=== PATIENT | female | born 1945 | race Caucasian/White ===

== ENCOUNTER 2021-12-24 07:43 | Day surgery (SDC) | payer MEDICARE, OTHER ==
[2021-12-17 11:45] LABS: BASOPHILS % (AUTO) 0.5 % (0-1); EOSINOPHILS # (AUTO) 0.1 X10'3 (0-0.9); EOSINOPHILS % (AUTO) 2.4 % (0-6); LYMPHOCYTES # (AUTO) 1.2 X10'3 (1.1-4.8); LYMPHOCYTES % (AUTO) 21.3 % (21-51); MEAN CORPUSCULAR HEMOGLOBIN 29.1 PG (27.0-31.0); MEAN CORPUSCULAR HGB CONC 33.1 g/dL (33.0-36.5); MEAN CORPUSCULAR VOLUME 87.9 FL (78-98); MEAN PLATELET VOLUME 7.5 FL (7.4-10.4); MONOCYTES # (AUTO) 0.6 X10'3 (0-0.9); MONOCYTES % (AUTO) 11.7 % (2-12); NEUTROPHILS # (AUTO) 3.5 X10'3 (1.8-7.7); NEUTROPHILS % (AUTO) 64.1 % (42-75); PRE OP HEMATOCRIT 40.8 % (35.0-45.0); PRE OP HEMOGLOBIN 13.5 g/dL (12.0-16.0); PRE OP PLATELET COUNT 287 X10'3 (140-440); RED BLOOD COUNT 4.63 X10'6 (4.20-5.60); RED CELL DISTRIBUTION WIDTH 13.5 % (11.5-14.5)
[2021-12-17 11:51] LABS: ALBUMIN 3.6 G/DL (3.4-5.0); ALBUMIN/GLOBULIN RATIO 1.1 (1.1-1.5); ALKALINE PHOSPHATASE 84 IU/L (46-116); BLOOD UREA NITROGEN 17 MG/DL (7-18); BUN/CREATININE RATIO 19.3 (6.6-38.0); CALCIUM 8.9 MG/DL (8.5-10.1); CHLORIDE 105 MMOL/L (99-107); CREATININE 0.88 MG/DL (0.40-0.90); PRE OP ALT 18 U/L (30-65); PRE OP ANION GAP 9 (8-16); PRE OP AST 14 U/L (10-37); PRE OP BILIRUB, TOTAL 0.3 MG/DL (0.0-1.0); PRE OP GLUCOSE 101 MG/DL (70-104); PRE OP SODIUM 143 MMOL/L (135-145); TOTAL CARBON DIOXIDE 28.7 MMOL/L (24-32); TOTAL PROTEIN 6.9 G/DL (6.4-8.2); eGFR 63 ML/MIN
[~2021-12-24] VITALS: Ht 167.6 cm; Wt 87.3 kg
[~2021-12-24 07:43] MED LIST: AMIT75TA7 PO; DOCUMENT DATE & TIME OF BETA-BLOCKER PO ONE; FAMO40TA58 PO; HYDR12.55 PO; LEVO112T5 PO; LOVA40TA2 PO; MECL-231 PO; METO50TA16 PO; OMEP20CA16 PO; SUMA25TA35 PO; ceFAZolin inj. 2,000 MG in dextrose 5%-water 100 ML IV ONE; famotidine 20mg tablet PO ONE; ringers solution, lacted 1,000 ML IV SCH
[2021-12-24 08:10] VITALS: BP 125/70
[2021-12-24] MEDS ORDERED: LIDOcaine 1% (10mg/ml) 2ml vial ONE (09:25)
[2021-12-24] MEDS ORDERED: LIDOcaine 0.5% (5mg/ml) 50ml vial ONE (10:10)
[2021-12-24] MEDS ORDERED: fentaNYL/PF 50MCG/1 ML 2ML syringe ONE (10:37)
[2021-12-24] MEDS ORDERED: midazolam 1 mg/ML 2ml injection ONE (10:38)
[2021-12-24] MEDS ORDERED: BUPIVAcaine/PF 2.5 mg/ml (0.25%) 30ml vial ONE (11:05)
[2021-12-24 11:22] VITALS: BP 121/66
--- NOTE | 2021-12-24 11:22 | NUR ---
Received from OR via [facility] , accompanied by Anesthesiologist DORIE and report given by Anesthesiolgist. PATIENT WITH SPLINT TO 5TH FINGER ON LEFT HAND THAT IS CDI. + CAP REFILL. NO DRAINAGE TO WOUND AT THIS TIME AND NO PAIN . WILL CONTINUE TO ASSESS. Addendum: 12/24/21 at 1130 by Shekhar Valdivia RN, RN Amended: Links added.
[2021-12-24 11:30] VITALS: BP 122/70
[2021-12-24 11:40] VITALS: BP 120/67
[2021-12-24 11:50] VITALS: BP 130/64
[2021-12-24 12:00] VITALS: BP 127/67
--- NOTE | 2021-12-24 12:02 | NUR ---
ALL DISCHARGE CRITERIA HAS BEEN MET. VSS. DENIES PAIN. DRESSED AND PATIENT WITHOUT ANY COMPLAINTS AT THIS TIME. PATIENT UNDERSTOOD ALL DC QUESTIONS AND ALL BELONGINGS SENT WITH PATIENT TO HOME. FRIEND DROVE PATIENT HOME. Addendum: 12/24/21 at 1230 by Shekhar Valdivia RN, RN Amended: Links added.
== END 2021-12-24 12:02 | disposition home or self-care (01) ==
LOC: PAS 07:43
PROVIDERS: ATTEND Orthopaedic Surgery Hand Surgery
DX: S62.637A Displaced fracture of distal phalanx of left little finger, initial encounter for closed fracture (principal); K21.9 Gastro-esophageal reflux disease without esophagitis; G43.909 Migraine, unspecified, not intractable, without status migrainosus; I10 Essential (primary) hypertension; E66.9 Obesity, unspecified; Z68.31 Body mass index [BMI] 31.0-31.9, adult; Z79.899 Other long term (current) drug therapy; Z96.653 Presence of artificial knee joint, bilateral; Z98.890 Other specified postprocedural states; Z72.89 Other problems related to lifestyle; X58.XXXA Exposure to other specified factors, initial encounter; Y93.89 Activity, other specified; Y92.89 Other specified places as the place of occurrence of the external cause; Y99.8 Other external cause status
CPT/HCPCS: 26746; 36415; 80053; 82948; 85025; 93005; A6222; C1713; J0690; J2250; J3010; J3490; J7030; J7060; J7120; Z7506; Z7512; A4215; A4618; A6449; A7000